=== PATIENT | female | born 1990 | race Caucasian/White ===

== ENCOUNTER 2017-07-18 10:21 | Inpatient (IN) | payer OTHER ==
[~2017-07-18] VITALS: Ht 162.6 cm; Wt 75.3 kg
[~2017-07-18 10:21] MED LIST: AZITHROMYCIN250 MG PO
[2017-07-18] MEDS ORDERED: PRENATABS FA T1 EACH PO (10:29)
== END 2017-07-20 15:20 | disposition home or self-care (01) | DRG 766 ==
LOC: LDR 10:21 → O/R 18:03 → OB/GYN 21:47
PROVIDERS: Obstetrics & Gynecology Obstetrics
PROC: 0UL70ZZ Occlusion of Bilateral Fallopian Tubes, Open Approach (ICD-10-PCS; 2017-07-18)
PROC: 4A1HXCZ Monitoring of Products of Conception, Cardiac Rate, External Approach (ICD-10-PCS; 2017-07-18)
PROC: 10D00Z1 Extraction of Products of Conception, Low, Open Approach (ICD-10-PCS; principal; 2017-07-18 16:00)
DX: O82 Encounter for cesarean delivery without indication (principal); Z3A.38 38 weeks gestation of pregnancy; Z37.0 Single live birth; Z30.2 Encounter for sterilization

== ENCOUNTER 2018-05-29 12:05 | Emergency (ER) | payer OTHER ==
[~2018-05-29] VITALS: Ht 165.1 cm; Wt 49.9 kg
[~2018-05-29 12:05] MED LIST changes: +PRENATABS FA T1 EACH PO
== END 2018-05-29 14:50 | disposition home or self-care (01) ==
LOC: ER 12:05
DX: H92.02 Otalgia, left ear (principal)

== ENCOUNTER → 2020-12-23 08:00 | Outpatient (CLI) | payer OTHER | END | disposition home or self-care (01) | LOC: LAB 08:00 | PROVIDERS: ATTEND General Practice | DX: E03.8 Other specified hypothyroidism (principal); C73 Malignant neoplasm of thyroid gland; H81.10 Benign paroxysmal vertigo, unspecified ear ==

== ENCOUNTER → 2020-12-23 | Outpatient (CLI) | payer OTHER | END | disposition home or self-care (01) | LOC: SONOGRAMA 09:22 | PROVIDERS: ATTEND Student in an Organized Health Care Education/Training Program | DX: E04.1 Nontoxic single thyroid nodule (principal) ==

== ENCOUNTER 2021-01-26 08:53 | Emergency (ER) | payer OTHER ==
[~2021-01-26] VITALS: Ht 162.6 cm; Wt 72.6 kg
[2021-01-26] MEDS ORDERED: DICLOFENAC POTA50 MG PO (09:56)
== END 2021-01-26 10:11 ==
LOC: ER 08:53
DX: M26.69 Other specified disorders of temporomandibular joint (principal); H60.8X2 Other otitis externa, left ear

== ENCOUNTER 2021-06-14 13:12 | Emergency (ER) | payer OTHER ==
[~2021-06-14] VITALS: Ht 162.6 cm; Wt 74.8 kg
[~2021-06-14 13:12] MED LIST changes: +DICLOFENAC POTA50 MG PO
== END 2021-06-14 16:40 | disposition home or self-care (01) ==
LOC: ER 13:12
DX: B34.9 Viral infection, unspecified (principal); Z20.822 Contact with and (suspected) exposure to COVID-19

== ENCOUNTER → 2022-03-29 08:40 | Outpatient (CLI) | payer OTHER | END | disposition home or self-care (01) | LOC: LAB 08:40 | DX: K75.81 Nonalcoholic steatohepatitis (NASH) (principal); R74.9 Abnormal serum enzyme level, unspecified ==

== ENCOUNTER 2022-03-29 09:20 | Outpatient (CLI) | payer OTHER | END 2022-03-29 09:24 | disposition home or self-care (01) | LOC: SONOGRAMA 09:20 | DX: R10.11 Right upper quadrant pain (principal) ==

== ENCOUNTER → 2022-08-22 | Outpatient (CLI) | payer OTHER | END | disposition home or self-care (01) | LOC: SONOGRAMA 14:11 | DX: E04.1 Nontoxic single thyroid nodule (principal); E03.9 Hypothyroidism, unspecified ==

== ENCOUNTER 2022-09-09 15:06 | Emergency (ER) | payer OTHER ==
[~2022-09-09] VITALS: Ht 162.6 cm; Wt 77.1 kg
== END 2022-09-09 19:23 | disposition home or self-care (01) ==
LOC: ER 15:06
DX: J11.1 Influenza due to unidentified influenza virus with other respiratory manifestations (principal); Z20.822 Contact with and (suspected) exposure to COVID-19

== ENCOUNTER 2023-05-03 15:03 | Outpatient (CLI) | payer OTHER | END 2023-05-03 15:05 | disposition home or self-care (01) | LOC: MAMO-SONO 15:03 | PROVIDERS: ATTEND Internal Medicine | DX: N64.4 Mastodynia (principal); N63 Unspecified lump in breast; N63.20 Unspecified lump in the left breast, unspecified quadrant ==

== ENCOUNTER → 2024-01-04 10:55 | Outpatient (CLI) | payer OTHER | END | disposition home or self-care (01) | LOC: LAB 10:55 | PROVIDERS: ATTEND General Practice | DX: Z11.52 Encounter for screening for COVID-19 (principal); Z20.822 Contact with and (suspected) exposure to COVID-19; Z20.828 Contact with and (suspected) exposure to other viral communicable diseases; Z11.59 Encounter for screening for other viral diseases; J11.1 Influenza due to unidentified influenza virus with other respiratory manifestations ==

== ENCOUNTER 2024-07-23 13:11 | Emergency (ER) | payer OTHER ==
[~2024-07-23] VITALS: Ht 162.6 cm; Wt 79.4 kg
[2024-07-23] MEDS ORDERED: FAMOTIDINE/PF 20 MG in 0.9 % SODIUM CHLORIDE 8 ML IV PUSH STA (13:36)
[2024-07-23] MEDS ORDERED: KETOROLAC TROMETHAMINE 30 MG VIAL ONE (13:44)
[2024-07-23] MEDS ORDERED: FAMOTIDINE/PF 20 MG/2 ML VIAL ONE (13:45)
[2024-07-23] MEDS ORDERED: 0.9 % SODIUM CHLORIDE 1,000 ML IV SCH (13:45)
[2024-07-23] MEDS ORDERED: KETOROLAC TROMETHAMINE 30 MG VIAL IV ONE (13:45)
[2024-07-23 14:03] LABS: BASO % 0.1 % (0.1-1.2); EOS # 0.07 (0.04-0.54); EOS % 0.8 % (0.7-7.0); HEMATOCRIT 36.4 % (34.1-44.9); HEMOGLOBIN 12.2 g/dL (11.2-15.7); LYMPH # 2.08 (1.18-3.74); LYMPH % 24.2 % (19.3-53.1); MEAN CORPUSCULAR HEMOGLOBIN 28.8 pg (25.6-32.2); MONO # 0.65 (0.24-0.82); MONO % 7.5 % (4.7-12.5); NEUT # 5.77 (1.56-6.13); NEUT % 67.1 % (34.0-71.1); PLATELET COUNT 270 K/uL (163-369); RED BLOOD COUNT 4.24 M/uL (3.93-5.22); RED CELL DISTRIBUTION WIDTH 13.2 % (11.6-14.4)
[2024-07-23 14:26] LABS: ALBUMIN 3.7 gm/dL (3.4-5.0); BILIRUBIN TOTAL 0.26 mg/dL (0.3-1.2); CALCIUM 9.3 mg/dL (8.5-10.1); CREATININE SERUM 0.77 mg/dL (0.55-1.02); GFR 85.81; GLOBULINA 4.4 G/DL (2.4-3.5); POTASSIUM 4.17 mEq/L (3.5-5.1); TOTAL PROTEIN 8.1 gm/dL (6.4-8.2)
[2024-07-23] MEDS ORDERED: CEFTRIAXONE SODIUM 1,000 MG VIAL ONE (15:57)
[2024-07-23] MEDS ORDERED: CEFTRIAXONE SODIUM 1,000 MG VIAL IV ONE (16:00)
== END 2024-07-23 17:11 | disposition home or self-care (01) ==
LOC: ER 13:17
PROVIDERS: General Practice
DX: N94.3 Premenstrual tension syndrome (principal); R10.9 Unspecified abdominal pain
CPT/HCPCS: 36415; 74177; Q9965